=== PATIENT | female | born 1985 | race Caucasian/White ===

== ENCOUNTER 2018-09-24 06:16 | Day surgery (SDC) | payer OTHER ==
[2018-09-24] MEDS ORDERED: ceFAZolin 2 GM/50 ML 2 GM/50 ML BAG IV ONE (06:21)
[2018-09-24] MEDS ORDERED: BUPIVACAINE 0.5% PF 30 ML VIAL ONE (06:52)
[2018-09-24] MEDS ORDERED: LACTATED RINGERS 1,000 ML IV ONE (06:56)
--- NOTE | 2018-09-24 07:24 | ANESTHESIA ---
Pre-Anesthesia VS, & Labs - Diagnosis left breast mass - Procedure left breast excisional biopsy Vital Signs: Temp Pulse Resp BP Pulse Ox 36.4 C L 60 16 115/96 H 100 09/24/18 06:45 09/24/18 06:45 09/24/18 06:45 09/24/18 06:45 09/24/18 06:45 Height 5 ft 3 in Weight (kg) 72.2 kg - NPO >8 hours - Is Patient ?: No Home Medications and Allergies Home Medications: Ambulatory Orders No Known Home Medications 09/21/18 No Known Home Medications 09/21/18 control implant in arm Allergies/Adverse Reactions: Allergies Allergy/AdvReac Type Severity Reaction Status Date / Time No Known Drug Allergies Allergy Verified 09/21/18 10:56 Anes History & Medical History - Anesthetic History Anesthesia Complications: reports: No previous complications - Medical History Cardiovascular: reports: None Pulmonary: reports: None Gastrointestinal: reports: None Urinary: reports: None Musculoskeletal: reports: None Endocrine/Autoimmune: reports: None Skin: reports: None Smoking Status: Light tobacco smoker - Surgical History Gynecologic: section Exam General: Alert Dental: WNL Mouth Opening: Greater than 4 Fingerbreadths Neck Mobility: Normal Mallampati classification: I Thyromental Distance: greater than 6 cm Respiratory: Lungs clear Mental/Cognitive Status: Alert/Oriented X3 Plan Anesthesia Type: General Consent for Procedure(s) Verified and Reviewed: Yes Code Status: Attempt Resuscitation ASA classification: 2-Mild systemic disease Is this case an emergency?: No
[2018-09-24 07:27] LABS: HCG UR QUAL NEGATIVE
[2018-09-24] MEDS ORDERED: DEXAMETHASONE 4 MG/ML VIAL IVP ONE (08:20)
[2018-09-24] MEDS ORDERED: ONDANSETRON 4 MG/2 ML VIAL IVP ONE (08:20)
[2018-09-24] MEDS ORDERED: KETOROLAC 30 MG/ML VIAL IVP ONE (08:20)
[2018-09-24] MEDS ORDERED: PROPOFOL 200 MG/20 ML VIAL IVP ONE (08:20)
[2018-09-24] MEDS ORDERED: LIDOCAINE-MPF 2% 5 ML VIAL IM ONE (08:20)
[2018-09-24] MEDS ORDERED: MIDAZOLAM 2 MG/2 ML VIAL IVP ONE (08:20)
[2018-09-24] MEDS ORDERED: fentaNYL 100 MCG/2 ML VIAL IVP ONE (08:20)
[2018-09-24] MEDS ORDERED: BUPIVACAINE 0.5% PF 30 ML VIAL SUBQ ONE (08:31)
[2018-09-24] MEDS ORDERED: BUPIVACAINE 0.5% PF 30 ML VIAL INFIL ONE (08:31)
[2018-09-24] MEDS ORDERED: ACETAMINOPHEN 325 MG TABLET PO PRN (08:42)
[2018-09-24] MEDS ORDERED: oxyCODONE 5 MG TABLET PO PRN (08:42)
[2018-09-24] MEDS ORDERED: IBUPROFEN 600 MG TABLET PO PRN (08:42)
[2018-09-24] MEDS ORDERED: ONDANSETRON 4 MG/2 ML VIAL IVP PRN (08:42)
--- NOTE | 2018-09-24 09:18 | OPERATIVE REPORT ---
DATE OF SERVICE: 09/24/2018 Physician: Mukund Guzman MD PREOPERATIVE DIAGNOSIS: Left breast mass. POSTOPERATIVE DIAGNOSIS: Left breast mass. PROCEDURE PERFORMED: Left breast lumpectomy. ANESTHESIA: General by Pablo Lara CRNA. SURGEON: Mukund Guzman MD ESTIMATED BLOOD LOSS: 20 mL COMPLICATIONS: None. FINDINGS: An approximately 15 mm lobulated firm mass was present deep in the 12 o'clock position of the left breast just above the nipple areolar complex consistent with the palpable abnormality and ul trasound findings of a fibroadenoma. The surrounding breast parenchyma appeared normal. INDICATIONS: The patient is a 32-year-old woman who noted a lump in the 12 o'clock position of the l eft breast on self-breast examination recently. 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 She was interested in jayaln ewa of the mass for definitive diagnosis and local therapy. TECHNIQUE: After informed consent, the patient was taken to the operating room where she was placed under general anesthesia. Preoperative preparation included administration of sequential calf compre ssion boots and 2 grams of cefazolin intravenously within an hour of the incision. Her left breast w as prepared with ChloraPrep solution and draped in the usual sterile fashion. A curvilinear incision approximately 2.5 cm was made along the superior edge of the nipple areolar complex and carried down into the subcutaneous tissues. Hemostasis achieved with electrocautery. Skin flaps were raised cir cumferentially to expose the underlying breast parenchyma. Incision was carried down into the parenc hyma until the mass was identified and picked up with Allis forceps and excised with gross margins of 2-3 mm circumferentially. The tissue was sent for pathologic evaluation. Hemostasis achieved with electrocautery. After complete hemostasis had been achieved, wound closure was accomplished in layer s using interrupted 3-0 Vicryl to reapproximate subcutaneous tissues, and 4-0 Monocryl for subcuticul ar skin closure, followed by Dermabond. Then 5 mL of 0.5% Marcaine plain was infiltrated into the in cision to assist in postoperative analgesia. Anesthesia was terminated and the patient was transferr ed to the recovery room in satisfactory condition. Sponge and needle counts were correct x2. No phoebe ins were used. TD: 09/24/2018 08:59
[2018-09-24 09:37] VITALS: BP 117/82
== END 2018-09-24 06:17 | disposition home or self-care (01) ==
LOC: SDS 06:16
PROVIDERS: ATTEND Internal Medicine Gastroenterology
PROC: 0HBU0ZZ Excision of Left Breast, Open Approach (ICD-10-PCS; principal; 2018-09-24 07:30)
DX: D24.2 Benign neoplasm of left breast (principal)
CPT/HCPCS: 19301; 81025; J0690; J7120

== ENCOUNTER 2019-05-06 13:41 | Emergency (ER) | payer OTHER ==
[2019-05-06 14:01] VITALS: BP 139/83
--- NOTE | 2019-05-06 14:30 | CT Report ---
Reason: head injury on concrete 2 days ago Procedure Date: 05/06/2019 Accession Number: [id number] / [id number] Procedure: CT - HEAD WO CPT Code: FULL RESULT: EXAM: CT HEAD EXAM DATE: 05/06/2019 02:15 PM. CLINICAL HISTORY: Head injury on concrete 2 days ago. COMPARISON: None. TECHNIQUE: Multiaxial CT images were obtained from the foramen magnum to the vertex. Reformats: Sagittal and coronal. IV contrast: None. In accordance with CT protocol optimization, one or more of the following dose reduction techniques were utilized for this exam: automated exposure control, adjustment of mA and/or KV based on patient size, or use of iterative reconstructive technique. FINDINGS: Parenchyma: No intraparenchymal hemorrhage. No evidence of mass, midline shift, or CT findings of infarction. Becerra-white differentiation is distinct. Extraaxial Spaces: Normal for age. No subdural or epidural collections identified. Ventricles: Normal in size and position. Sinuses and Orbits: Imaged paranasal sinuses, orbits, and mastoids show no significant abnormality. Bones: No acute fracture or bony lesion is identified. Other: Globes and orbits are unremarkable. IMPRESSION: 1. No acute intracranial abnormality is identified. 2. No acute fracture. RADIA
--- NOTE | 2019-05-06 15:46 | ED Physician Documentation ---
PD HPI HEAD INJURY - Stated complaint Stated Complaint: HEAD INJURY/DIZZY - Chief complaint Chief Complaint: Neuro - History obtained from History obtained from: Patient, Family - History of Present Illness Mechanism of head injury: Fell Where head injury occurred: Home Timing - onset: How many days ago (3) Location of injury: Back, Top Quality of pain: Pain, Throbbing Associated symptoms: LOC, Amnesia, Other (dizziness). No: Nausea / vomiting, Neck pain, Paresthesias, Seizures, Ear drainage, Nasal drainage Symptoms improve with: Rest Symptoms worsen with: Palpation, Movement Similar symptoms before: Has not had sx before Recently seen: Not recently seen - Additional information Additional information: 33-year-old female was on her boyfriend shoulders when she fell backwards landing on the top of her head. She had brief loss of consciousness and she has a period of amnesia of as long as 20 minutes. She went to sleep and when she awoke she had a bad headache that was throbbing. She has some dizziness but she denies nausea and she denies any difficulty concentrating. She was able to drive herself here today and felt safe doing so. Review of Systems Constitutional: denies: Fever Eyes: denies: Decreased vision Ears: denies: Ear pain Nose: denies: Rhinorrhea / runny nose, Reviewed and negative Throat: denies: Sore throat Cardiac: denies: Chest pain / pressure, Palpitations Respiratory: denies: Dyspnea, Cough GI: denies: Abdominal Pain, Nausea, Vomiting : denies: Dysuria, Frequency Skin: denies: Rash Musculoskeletal: denies: Neck pain, Back pain, Extremity pain Neurologic: reports: Headache, Head injury, LOC. 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 - Present Medications Home Medications: Ambulatory Orders Medication Instructions Recorded Confirmed No Known Home Medications 09/21/18 09/21/18 - Allergies Allergies/Adverse Reactions: Allergies Allergy/AdvReac Type Severity Reaction Status Date / Time No Known Drug Allergies Allergy Verified 05/06/19 14:01 - Social History Does the pt smoke?: Yes Smoking Status: Light tobacco smoker Does the pt drink ETOH?: Yes Does the pt have substance abuse?: No - Immunizations Immunizations are current?: Yes PD ED PE NORMAL - Vitals Vital signs reviewed: Yes (hypertensive mild ) - General General: Alert and oriented X 3, No acute distress, Well developed/nourished - HEENT HEENT: PERRL, EOMI, Ears normal, Moist mucous membranes, Pharynx benign, Dentition benign, Other (There is a tender area over the vertex/occipital region ) - Neck Neck: Supple, no meningeal sign, No bony TTP - Respiratory Respiratory: No respiratory distress - Derm Derm: Normal color, Warm and dry, No rash - Extremities Extremities: No deformity, No edema - Neuro Neuro: Alert and oriented 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 No acute intracranial abnormality is identified. 2. No acute fracture.), EMP read indepedently, See rad report PD MEDICAL DECISION MAKING - ED course Complexity details: reviewed results, re-evaluated patient, considered differential, d/w patient ED course: 33-year-old female has had a closed head injury with loss of consciousness she has persistent dizziness and headache. She has no intracranial abnormality on CT scanning of her head. She is given instructions about concussion and specifically about avoiding a second head injury. Departure - Departure Disposition: 01 Home, Self Care Clinical Impression: Post concussion syndrome Concussion Qualifiers: Encounter type: initial encounter Loss of consciousness presence/duration: with LOC of 30 min or less Qualified Code(s): S06.0X1A - Concussion with loss of consciousness of 30 minutes or less, initial encounter Condition: Stable Instructions: ED Concussion Follow-Up: CHRISTELLE Raygoza [Provider Group]
== END 2019-05-06 16:02 | disposition home or self-care (01) ==
LOC: ED 13:41
DX: F07.81 Postconcussional syndrome (principal); R51 Headache; R42 Dizziness and giddiness; F17.200 Nicotine dependence, unspecified, uncomplicated
CPT/HCPCS: 70450; 99284